=== PATIENT | female | born 1940 | race Caucasian/White ===

== ENCOUNTER → 2017-07-06 | Emergency (ER) | payer MEDICARE ==
[~2017-07-06] VITALS: Ht 152.4 cm; Wt 66.8 kg
[~2017-07-06] MED LIST: AMOX-580 PO; ASPI-1265 PO; ATOR10TA87 PO; BACL10TA PO; BENA10TA2 PO; DULO60CA64 PO; ESTR1TAB19 PO; GABA-532 PO; HYDR-565 PO; OMEP40CA37 PO; ZOLP5TAB2 PO
[2017-07-06 11:54] VITALS: BP 134/79
== END | disposition home or self-care (01) ==
LOC: ER 11:35
DX: S61.451A Open bite of right hand, initial encounter (principal); I10 Essential (primary) hypertension; Z79.82 Long term (current) use of aspirin; Z79.899 Other long term (current) drug therapy; W55.01XA Bitten by cat, initial encounter; Y93.89 Activity, other specified; Y92.89 Other specified places as the place of occurrence of the external cause; Y99.8 Other external cause status

== ENCOUNTER 2019-04-28 20:55 | Emergency (ER) | payer MEDICARE ==
[~2019-04-28] VITALS: Ht 152.4 cm; Wt 54.0 kg
[~2019-04-28 20:55] MED LIST changes: -AMOX-580 PO; -BENA10TA2 PO; +BENA10TA74 PO; -DULO60CA64 PO; +DULO60CA65 PO; +HYDR-4353 PO; -HYDR-565 PO; +OMEP40CA13 PO; -OMEP40CA37 PO
--- NOTE | 2019-04-28 21:36 | NUR ---
PT REPORTS THAT HER CAT HAS HAD ITS RABIES VACCATION
[2019-04-28] MEDS ORDERED: amox tr/potassium clavulanate 875/125mg TAB PO ONE (22:10)
[2019-04-28] MEDS ORDERED: AMOX-580 PO (22:10)
[2019-04-28] MEDS ORDERED: TETanus/Pertussis (Acell)/Diphther VAC/PF (Tdap-Adult) 0.5ml syringe IMVAC ONE (22:20)
[2019-04-28 23:05] VITALS: BP 126/74
== END 2019-04-28 22:38 | disposition home or self-care (01) ==
LOC: ER 20:55
DX: S61.432A Puncture wound without foreign body of left hand, initial encounter (principal); I10 Essential (primary) hypertension; Z79.82 Long term (current) use of aspirin; Z79.899 Other long term (current) drug therapy; W55.01XA Bitten by cat, initial encounter; Y93.89 Activity, other specified; Y92.89 Other specified places as the place of occurrence of the external cause; Y99.8 Other external cause status
CPT/HCPCS: 90471; 90715; 99284

== ENCOUNTER 2021-05-29 14:32 | Inpatient (IN) | payer BC, MEDICARE ==
[~2021-05-29] VITALS: Ht 152.4 cm; Wt 54.6 kg
[~2021-05-29 14:32] MED LIST changes: -ESTR1TAB19 PO; +FURO20TA4 PO; -OMEP40CA13 PO; +OMEP40CA21 PO
--- NOTE | 2021-05-29 14:46 | NUR ---
ARRIVED FOR LEVEL 1 WITH ONSET AT 1330 TODAY? DAUGHTER SAYS PATIENT HAS NOT BEEN SEEN BY THEM SINCE YESTERDAY. PT SAYS WAS NORMAL THIS MORNING. DAUGHTER PHONED PT AT 1:30 THIS AFTERNOON AND NOTED PT WAS SLURRED. AT 2:30 DAUGHTER WENT TO PTS HOME AND PT HAD CRAWLED TO DOOR TO ANSWER IT SHE COULD NOT "WALK". PT HAS CHRONIC DROOPY LEFT FACE AND HAS HAD TWITCHING OF LEFT EYE AND MOUTH FOR WHICH SHE HAS RECENTLY STARTED TAKING MEDICATION FOR. PT HAS SUBTLE DRIFT OF LEFT LEG AND ARM. ATAXIA PRESENT WITH LEFT FINGER TO NOSE. VISION AND SENSORY INTACT. 1529 TELE NEURO EXAM COMPLETED WITH DR CORMIER.
[2021-05-29 15:12] LABS: BASOPHILS % (AUTO) 0.4 % (0-1); EOSINOPHILS # (AUTO) 0.1 X10'3 (0-0.9); EOSINOPHILS % (AUTO) 1.9 % (0-6); HEMATOCRIT 40.5 % (35.0-45.0); HEMOGLOBIN 13.6 g/dl (12.0-16.0); LYMPHOCYTES # (AUTO) 1.6 X10'3 (1.1-4.8); LYMPHOCYTES % (AUTO) 28.8 % (21-51); MEAN CORPUSCULAR HEMOGLOBIN 31.2 PG (27.0-31.0); MEAN CORPUSCULAR HGB CONC 33.7 g/dL (33.0-36.5); MEAN CORPUSCULAR VOLUME 92.6 FL (78-98); MEAN PLATELET VOLUME 8.3 FL (7.4-10.4); MONOCYTES # (AUTO) 0.4 X10'3 (0-0.9); NEUTROPHILS # (AUTO) 3.4 X10'3 (1.8-7.7); NEUTROPHILS % (AUTO) 61.9 % (42-75); PLATELET COUNT 186 X10'3 (140-440); RED BLOOD COUNT 4.37 X10'6 (4.20-5.60); RED CELL DISTRIBUTION WIDTH 13.2 % (11.5-14.5); WHITE BLOOD COUNT 5.5 X10'3 (4.5-11.0)
[2021-05-29 15:27] LABS: APTT 29 SECONDS (22-32)
[2021-05-29 15:40] LABS: ALANINE AMINOTRANSFERASE 17 U/L (12-78); ALBUMIN 3.6 G/DL (3.4-5.0); ALBUMIN/GLOBULIN RATIO 1.2 (1.1-1.5); ALKALINE PHOSPHATASE 138 IU/L (46-116); ANION GAP 10 (8-16); ASPARTATE AMINO TRANSFERASE 17 U/L (10-37); BILIRUBIN,TOTAL 0.2 MG/DL (0.1-1.0); BLOOD UREA NITROGEN 23 MG/DL (7-18); BUN/CREATININE RATIO 36.5 (6.6-38.0); CALCIUM 8.3 MG/DL (8.5-10.1); CHLORIDE 107 MMOL/L (99-107); CREATININE 0.63 MG/DL (0.40-0.90); GLUCOSE 106 MG/DL (70-104); POTASSIUM 4.4 MMOL/L (3.5-5.1); SODIUM 142 MMOL/L (135-145); TOTAL CARBON DIOXIDE 25.5 MMOL/L (24-32); TOTAL PROTEIN 6.5 G/DL (6.4-8.2); eGFR > 90 ML/MIN
--- NOTE | 2021-05-29 15:50 | NUR ---
STROKE NURSE AT BEDSIDE.
[2021-05-29 16:58] LABS: CLARITY,URINE SLIGHTLY CLOUDY (Clear); COLOR,URINE YELLOW (Yellow); GLUCOSE, URINE NEGATIVE (Neg); KETONES,URINE NEGATIVE (Neg); LEUKOCYTE ESTERASE ,URINE TRACE (Neg); NITRITES, URINE NEGATIVE (Neg); OCCULT BLOOD,URINE NEGATIVE (Neg); PROTEIN,URINE NEGATIVE (Neg); UROBILINOGEN,URINE 0.2 E.U/dL (0.2-1.0)
[2021-05-29] MEDS ORDERED: GABA300C PO (16:58)
[2021-05-29] MEDS ORDERED: BACL10TA2 PO (16:58)
[2021-05-29] MEDS ORDERED: CARB100T15 PO (16:58)
[2021-05-29] MEDS ORDERED: ATOR20TA66 PO (16:58)
[2021-05-29] MEDS ORDERED: MELO-100 PO (16:58)
[2021-05-29] MEDS ORDERED: HYDR-3973 PO (16:58)
[2021-05-29] MEDS ORDERED: ZOLP5TAB8 PO (16:58)
[2021-05-29 16:59] LABS: UA COLLECTION TYPE VOIDED
[2021-05-29] MEDS ORDERED: magnesium 2GM in 50ml NS 50 ML IV PRN (17:00)
[2021-05-29] MEDS ORDERED: magnesium Cl slow-release 64mg tablet PO PRN (17:00)
[2021-05-29] MEDS ORDERED: ondansetron/PF 4mg/2ml inj IV PRN (17:00)
[2021-05-29] MEDS ORDERED: acetaminophen 325mg tablet PO PRN (17:00)
[2021-05-29] MEDS ORDERED: mag hydrox/Alum hydrox/simeth 30ml oral suspension PO PRN (17:00)
[2021-05-29] MEDS ORDERED: potassium CL 10mEq/100ml bag 100 ML IV PRN (17:00)
[2021-05-29] MEDS ORDERED: potassium Cl 20 mEq SR tablet PO PRN ×2 (17:00)
[2021-05-29] MEDS ORDERED: magnesium hydroxide 30ml (MOM) UD suspension PO PRN (17:00)
[2021-05-29] MEDS ORDERED: magnesium 4gm in 100ml NS 100 ML IV PRN (17:00)
[2021-05-29 17:04] LABS: BACTERIA,URINE 1+ /HPF (Neg); MUCUS STRANDS FEW /LPF (Neg); RBC,URINE 0-2 /HPF (0-2); SQUAMOUS EPITHELIAL CELL,UR MODERATE /LPF (FEW); TRANSITIONAL EPI CELLS,URINE FEW /HPF
[2021-05-29 17:31] LABS: CHOL/HDL RATIO 2.5 (0.00-4.99); CHOLESTEROL 227 MG/DL (0-200); HDL CHOLESTEROL 92 MG/DL (35-60); MAGNESIUM 1.8 MG/DL (1.5-2.4); TRIGLYCERIDES 211 MG/DL (20-135)
[2021-05-29] MEDS: normal saline 1000ml 1,000 ML IV SCH ×2 (17:36→22:38)
[2021-05-29] MEDS ORDERED: zolpidem 5mg tablet PO PRN (17:40)
[2021-05-29] MEDS ORDERED: HYDROcodone/acetaminophen 10/325mg tab PO PRN (17:40)
[2021-05-29 17:45] LABS: LDL CHOLESTEROL 105 MG/DL (50-100)
--- NOTE | 2021-05-29 17:59 | NUR ---
HOLTER TECHNICIAN AT BEDSIDE.
[2021-05-29] MEDS: K and/or MAG REPLACEMENT MC SCH (20:00)
[2021-05-29 22:40] VITALS: BP 124/67
[2021-05-29] MEDS: docusate sod 100mg capsule PO SCH (23:10)
[2021-05-30 02:00] VITALS: BP 143/79
[2021-05-30 06:00] VITALS: BP 170/85
[2021-05-30 06:23] LABS: BASOPHILS % (AUTO) 0.4 % (0-1); EOSINOPHILS # (AUTO) 0.1 X10'3 (0-0.9); EOSINOPHILS % (AUTO) 1.6 % (0-6); HEMATOCRIT 42.6 % (35.0-45.0); HEMOGLOBIN 13.9 g/dl (12.0-16.0); LYMPHOCYTES # (AUTO) 1.7 X10'3 (1.1-4.8); LYMPHOCYTES % (AUTO) 32.6 % (21-51); MEAN CORPUSCULAR HEMOGLOBIN 30.9 PG (27.0-31.0); MEAN CORPUSCULAR HGB CONC 32.6 g/dL (33.0-36.5); MEAN CORPUSCULAR VOLUME 94.8 FL (78-98); MEAN PLATELET VOLUME 8.3 FL (7.4-10.4); MONOCYTES # (AUTO) 0.4 X10'3 (0-0.9); MONOCYTES % (AUTO) 8.1 % (2-12); NEUTROPHILS # (AUTO) 2.9 X10'3 (1.8-7.7); NEUTROPHILS % (AUTO) 57.3 % (42-75); PLATELET COUNT 165 X10'3 (140-440); RED BLOOD COUNT 4.49 X10'6 (4.20-5.60); RED CELL DISTRIBUTION WIDTH 13.5 % (11.5-14.5); WHITE BLOOD COUNT 5.1 X10'3 (4.5-11.0)
[2021-05-30 07:43] LABS: ALBUMIN 3.4 G/DL (3.4-5.0); ANION GAP 14 (8-16); BLOOD UREA NITROGEN 22 MG/DL (7-18); BUN/CREATININE RATIO 39.3 (6.6-38.0); CALCIUM 8.8 MG/DL (8.5-10.1); CHLORIDE 107 MMOL/L (99-107); CREATININE 0.56 MG/DL (0.40-0.90); GLUCOSE 101 MG/DL (70-104); POTASSIUM 4.8 MMOL/L (3.5-5.1); SODIUM 142 MMOL/L (135-145); TOTAL CARBON DIOXIDE 21.1 MMOL/L (24-32); eGFR > 90 ML/MIN
[2021-05-30] MEDS: docusate sod 100mg capsule PO SCH (07:47)
[2021-05-30] MEDS: K and/or MAG REPLACEMENT MC SCH (07:55)
[2021-05-30] MEDS ORDERED: duloxetine 30mg CAPSULE.DR PO SCH (08:00)
[2021-05-30] MEDS ORDERED: gabapentin 300mg capsule PO SCH (08:00)
[2021-05-30] MEDS ORDERED: carBAMazepine 100mg chewable tablet PO SCH (08:00)
[2021-05-30] MEDS ORDERED: lisinopril 10 MG tablet PO SCH (08:00)
[2021-05-30] MEDS ORDERED: atorvastatin 20mg tablet PO SCH (08:00)
[2021-05-30] MEDS ORDERED: pantoprazole 40mg Tablet.DR PO SCH (08:00)
[2021-05-30] MEDS ORDERED: enoxaparin 40mg/0.4ml syringe SUBCUT SCH (08:00)
[2021-05-30] MEDS ORDERED: aspirin 81mg, enteric-coated 1 TAB TABLET.DR PO SCH (08:00)
--- NOTE | 2021-05-30 10:17 | NUR ---
ALERT WHEN AROUSED. CHRONIC LEFT FACIAL WEAKNESS PRESENT. MINIMAL SLURRING. PT SAYS HAS HAD BOTOX TREATMENT FOR LEFT FACIAL WEAKNESS..PER PT "DIDN'T HELP". VASCULAR STUDIES DONE WITH EXCEPTION OF MRI. URINE CULTURE PENDING. CONDITION IMPROVED FROM 05/29.
[2021-05-30 11:00] VITALS: BP 129/66
[2021-05-30] MEDS ORDERED: levoFLOXACIN 500mg tablet PO ONE (13:00)
[2021-05-30 15:00] VITALS: BP 122/68
--- NOTE | 2021-05-30 16:23 | NUR ---
PAGER ID: [phone] MESSAGE: PATIENT [id number] CAN NOT GET MRI BECAUSE SHE HAD CATARACT SURGERY COUPLE WEEKS AGO . SHE HAVE TO WEEK 6 WEEKS . AND SHE WILL LIKE TO BE DISCHARGE . LATISHA JONES
[2021-05-30] MEDS ORDERED: ASPI81TA52 PO (16:29)
== END 2021-05-30 17:25 | disposition home or self-care (01) | DRG 69 ==
LOC: ER 14:32 → ED HOLD 17:01 → PCU 3S 22:00
PROVIDERS: ADMIT Family Medicine; ATTEND Family Medicine
DX: G45.9 Transient cerebral ischemic attack, unspecified (principal); G51.0 Bell's palsy; E78.5 Hyperlipidemia, unspecified; I10 Essential (primary) hypertension; K21.9 Gastro-esophageal reflux disease without esophagitis; G62.9 Polyneuropathy, unspecified; M79.7 Fibromyalgia; Z90.710 Acquired absence of both cervix and uterus; Z91.041 Radiographic dye allergy status; Z79.899 Other long term (current) drug therapy
CPT/HCPCS: 36415; 70450; 71045; 80048; 80053; 80061; 81001; 82948; 83735; 84484; 85025; 85610; 85730; 87077; 87081; 87088; 87186; 92508; 92616; 93005; 93306; 93880; 99285; G0378; J1650; J7030

== ENCOUNTER 2023-04-08 14:05 | Emergency (ER) | payer MEDICARE ==
[~2023-04-08] VITALS: Ht 154.9 cm; Wt 50.9 kg
[~2023-04-08 14:05] MED LIST changes: -ASPI-1265 PO; -ATOR10TA87 PO; +ATOR20TA66 PO; -BACL10TA PO; +BACL10TA2 PO; +CARB100T15 PO; -FURO20TA4 PO; -GABA-532 PO; +GABA300C PO; +HYDR-3973 PO; -HYDR-4353 PO; +MELO-100 PO; -ZOLP5TAB2 PO; +ZOLP5TAB8 PO
[2023-04-08 14:09] VITALS: BP 151/67; PULSE 87; RESP 18; TEMP 97.7; O2SAT 98
== END 2023-04-08 15:56 | disposition left against medical advice (07) ==
LOC: ER 14:06
DX: I63.9 Cerebral infarction, unspecified (principal); Z53.21 Procedure and treatment not carried out due to patient leaving prior to being seen by health care provider
CPT/HCPCS: 99281

== ENCOUNTER 2023-12-03 18:41 | Inpatient (IN) | payer MEDICARE ==
[~2023-12-03] VITALS: Ht 152.4 cm; Wt 52.7 kg
[2023-12-03 19:58] LABS: BASOPHILS % (AUTO) 0.3 % (0-1); EOSINOPHILS # (AUTO) 0.1 X10'3 (0-0.9); EOSINOPHILS % (AUTO) 1.3 % (0-6); HEMATOCRIT 46.7 % (35.0-45.0); HEMOGLOBIN 15.6 g/dl (12.0-16.0); LYMPHOCYTES # (AUTO) 1.6 X10'3 (1.1-4.8); LYMPHOCYTES % (AUTO) 19.4 % (21-51); MEAN CORPUSCULAR HEMOGLOBIN 31.3 PG (27.0-31.0); MEAN CORPUSCULAR HGB CONC 33.3 g/dL (33.0-36.5); MEAN CORPUSCULAR VOLUME 93.9 FL (78-98); MONOCYTES # (AUTO) 0.6 X10'3 (0-0.9); MONOCYTES % (AUTO) 7.3 % (2-12); NEUTROPHILS # (AUTO) 5.8 X10'3 (1.8-7.7); NEUTROPHILS % (AUTO) 71.7 % (42-75); PLATELET COUNT 198 X10'3 (140-440); RED BLOOD COUNT 4.97 X10'6 (4.20-5.60); RED CELL DISTRIBUTION WIDTH 13.2 % (11.5-14.5); WHITE BLOOD COUNT 8.1 X10'3 (4.5-11.0)
[2023-12-03 20:07] LABS: ANION GAP 9 (8-16); BLOOD UREA NITROGEN 35 MG/DL (7-18); BUN/CREATININE RATIO 24.5 (10.0-20.0); CALCIUM 9.1 MG/DL (8.5-10.1); CHLORIDE 108 MMOL/L (99-107); CREATININE 1.43 MG/DL (0.40-0.90); GLUCOSE 94 MG/DL (70-104); POTASSIUM 4.5 MMOL/L (3.5-5.1); SODIUM 143 MMOL/L (135-145); TOTAL CARBON DIOXIDE 25.9 MMOL/L (24-32); eCRCL 21 ML/MIN; eGFR 35 ML/MIN
[2023-12-03 20:09] LABS: APTT 26 SECONDS (22-32); PROTHROMBIN TIME 10.8 SECONDS (9.0-12.0)
[2023-12-03] MEDS: propofol 10mg/ml 20ml vial IV ONE (20:10)
[2023-12-03 20:32] LABS: MAGNESIUM 2.1 MG/DL (1.5-2.4)
[2023-12-03] MEDS: ondansetron/PF 4mg/2ml inj IV ONE (20:35)
[2023-12-03] MEDS: morphine 2 MG/ML inj. syringe IV PRN (20:37)
[2023-12-04] MEDS ORDERED: magnesium Cl slow-release 64mg tablet PO PRN (01:40)
[2023-12-04] MEDS ORDERED: PERFLUTREN PROTEIN-A MICROSPHR (Optison) 0.22 MG/ML 3ML VIAL IV PRN (01:40)
[2023-12-04] MEDS ORDERED: potassium Cl 20 mEq SR tablet PO PRN ×2 (01:40)
[2023-12-04] MEDS ORDERED: acetaminophen 325mg tablet PO PRN (01:40)
[2023-12-04] MEDS ORDERED: mag hydrox/Alum hydrox/simeth 30ml oral suspension PO PRN (01:40)
[2023-12-04] MEDS ORDERED: magnesium sulf-water 2g/50mL 50 ML IV PRN (01:40)
[2023-12-04] MEDS ORDERED: potassium Cl 40MEQ/1/2NS 520ml 520 ML IV PRN (01:40)
[2023-12-04] MEDS ORDERED: ondansetron/PF 4mg/2ml inj IV PRN (01:40)
[2023-12-04] MEDS ORDERED: magnesium sulf-water 4G/100mL 100 ML IV PRN (01:40)
[2023-12-04] MEDS ORDERED: magnesium hydroxide 30ml (MOM) UD suspension PO PRN (01:40)
[2023-12-04] MEDS: HYDROcodone/acetaminophen 10/325mg tab PO PRN (02:12)
[2023-12-04] MEDS: normal saline 1000ml 1,000 ML IV SCH (02:16)
[2023-12-04 02:19] LABS: HEMOGLOBIN A1C 5.6 % (4.5-6.2)
[2023-12-04 05:57] VITALS: BP 97/66; PULSE 75; RESP 16; TEMP 97.2; O2SAT 94
[2023-12-04] MEDS: duloxetine 30mg CAPSULE.DR PO SCH (07:35)
[2023-12-04] MEDS: atorvastatin 20mg tablet PO SCH (07:35)
[2023-12-04] MEDS: lisinopril 10 MG tablet PO SCH (07:36)
[2023-12-04] MEDS: heparin, porcine 5000 units/ml vial SQ SCH (07:36)
[2023-12-04] MEDS: K and/or MAG REPLACEMENT MC SCH (07:37)
[2023-12-04] MEDS ORDERED: pneumococcal 23-VAL P-sac vacc 25 mcg/0.5ml vial IMVAC ONE (10:00)
[2023-12-04 11:00] VITALS: BP 136/53; PULSE 74; RESP 18; TEMP 98.3; O2SAT 94
[2023-12-04 16:29] LABS: BILIRUBIN,URINE NEGATIVE (Neg); CLARITY,URINE CLEAR (Clear); COLOR,URINE YELLOW (Yellow); GLUCOSE, URINE NEGATIVE (Neg); KETONES,URINE NEGATIVE (Neg); LEUKOCYTE ESTERASE ,URINE NEGATIVE (Neg); NITRITES, URINE NEGATIVE (Neg); OCCULT BLOOD,URINE NEGATIVE (Neg); PROTEIN,URINE NEGATIVE (Neg); UROBILINOGEN,URINE 0.2 E.U/dL (0.2-1.0)
[2023-12-04 16:35] LABS: UA COLLECTION TYPE STRAIGHT CATH
[2023-12-04 18:00] VITALS: BP 132/47; PULSE 82; RESP 18; TEMP 98.1; O2SAT 94
[2023-12-04 19:40] LABS: BASOPHILS % (AUTO) 0.6 % (0-1); EOSINOPHILS # (AUTO) 0.1 X10'3 (0-0.9); EOSINOPHILS % (AUTO) 1.2 % (0-6); HEMATOCRIT 37.1 % (35.0-45.0); HEMOGLOBIN 12.2 g/dl (12.0-16.0); LYMPHOCYTES # (AUTO) 1.1 X10'3 (1.1-4.8); LYMPHOCYTES % (AUTO) 18.6 % (21-51); MEAN CORPUSCULAR HGB CONC 32.8 g/dL (33.0-36.5); MEAN CORPUSCULAR VOLUME 94.6 FL (78-98); MEAN PLATELET VOLUME 8.9 FL (7.4-10.4); MONOCYTES # (AUTO) 0.4 X10'3 (0-0.9); NEUTROPHILS # (AUTO) 4.3 X10'3 (1.8-7.7); NEUTROPHILS % (AUTO) 72.6 % (42-75); PLATELET COUNT 147 X10'3 (140-440); RED BLOOD COUNT 3.92 X10'6 (4.20-5.60); RED CELL DISTRIBUTION WIDTH 13.2 % (11.5-14.5); WHITE BLOOD COUNT 5.9 X10'3 (4.5-11.0)
[2023-12-04] MEDS: gabapentin 300mg capsule PO SCH (21:43)
[2023-12-04] MEDS: carBAMazepine 100mg chewable tablet PO SCH (21:44)
[2023-12-04 22:00] VITALS: BP 123/55; PULSE 69; RESP 14; TEMP 97.9; O2SAT 95
[2023-12-05 05:48] LABS: BASOPHILS % (AUTO) 0.3 % (0-1); EOSINOPHILS # (AUTO) 0.1 X10'3 (0-0.9); EOSINOPHILS % (AUTO) 2.3 % (0-6); HEMATOCRIT 35.7 % (35.0-45.0); HEMOGLOBIN 11.8 g/dl (12.0-16.0); LYMPHOCYTES # (AUTO) 1.2 X10'3 (1.1-4.8); LYMPHOCYTES % (AUTO) 23.6 % (21-51); MEAN CORPUSCULAR HEMOGLOBIN 31.2 PG (27.0-31.0); MEAN CORPUSCULAR VOLUME 94.6 FL (78-98); MEAN PLATELET VOLUME 9.1 FL (7.4-10.4); MONOCYTES # (AUTO) 0.4 X10'3 (0-0.9); MONOCYTES % (AUTO) 8.4 % (2-12); NEUTROPHILS # (AUTO) 3.3 X10'3 (1.8-7.7); NEUTROPHILS % (AUTO) 65.4 % (42-75); PLATELET COUNT 137 X10'3 (140-440); RED BLOOD COUNT 3.78 X10'6 (4.20-5.60); RED CELL DISTRIBUTION WIDTH 12.9 % (11.5-14.5)
[2023-12-05 06:00] VITALS: BP 137/54; PULSE 68; RESP 14; TEMP 98.4; O2SAT 96
[2023-12-05 06:11] LABS: APTT 31 SECONDS (22-32); PROTHROMBIN TIME 10.9 SECONDS (9.0-12.0)
[2023-12-05 06:12] LABS: ALANINE AMINOTRANSFERASE 49 U/L (12-78); ALBUMIN 2.7 G/DL (3.4-5.0); ALBUMIN/GLOBULIN RATIO 1.1 (1.1-1.5); ALKALINE PHOSPHATASE 95 IU/L (46-116); ANION GAP 6 (8-16); ASPARTATE AMINO TRANSFERASE 51 U/L (10-37); BILIRUBIN,TOTAL 0.4 MG/DL (0.1-1.0); BLOOD UREA NITROGEN 26 MG/DL (7-18); BUN/CREATININE RATIO 41.9 (10.0-20.0); CALCIUM 8.4 MG/DL (8.5-10.1); CHLORIDE 111 MMOL/L (99-107); CHOL/HDL RATIO 2.8 (0.00-4.99); CHOLESTEROL 172 MG/DL (0-200); CREATININE 0.62 MG/DL (0.40-0.90); GLUCOSE 103 MG/DL (70-104); HDL CHOLESTEROL 61 MG/DL (35-60); LDL CHOLESTEROL 94 MG/DL (50-100); MAGNESIUM 1.7 MG/DL (1.5-2.4); PHOSPHORUS 3.3 MG/DL (2.3-4.5); POTASSIUM 4.6 MMOL/L (3.5-5.1); SODIUM 142 MMOL/L (135-145); TOTAL CARBON DIOXIDE 25.3 MMOL/L (24-32); TOTAL PROTEIN 5.2 G/DL (6.4-8.2); TRIGLYCERIDES 84 MG/DL (20-135); eCRCL 49 ML/MIN; eGFR > 90 ML/MIN
[2023-12-05 10:00] VITALS: BP 138/60; PULSE 74; RESP 18; TEMP 98; O2SAT 95
[2023-12-05] MEDS: BUPIVAcaine 2.5mg/ml inj 50ml vial (contains preservative) ONE (15:37)
[2023-12-05 18:00] VITALS: BP 146/63; PULSE 77; RESP 16; TEMP 98; O2SAT 96
[2023-12-05 20:00] VITALS: BP_SYST 130; BP_SYST 135; BP_DIAS 62; BP_DIAS 63; PULSE 71; PULSE 74
[2023-12-05 22:00] VITALS: BP 133/62; PULSE 71; RESP 16; TEMP 98.2; O2SAT 95
[2023-12-06] VITALS (14 sets, daily range): BP systolic 105–177; BP diastolic 38–70; PULSE 68–89; RESP 10–18; TEMP 97.3–97.8; O2SAT 93–100
[2023-12-06 05:47] LABS: BASOPHILS % (AUTO) 0.3 % (0-1); EOSINOPHILS # (AUTO) 0.1 X10'3 (0-0.9); LYMPHOCYTES % (AUTO) 18.6 % (21-51); MEAN CORPUSCULAR HEMOGLOBIN 30.5 PG (27.0-31.0); MEAN CORPUSCULAR HGB CONC 32.4 g/dL (33.0-36.5); MEAN CORPUSCULAR VOLUME 93.9 FL (78-98); MONOCYTES # (AUTO) 0.3 X10'3 (0-0.9); MONOCYTES % (AUTO) 5.7 % (2-12); NEUTROPHILS # (AUTO) 4.1 X10'3 (1.8-7.7); NEUTROPHILS % (AUTO) 73.4 % (42-75); PLATELET COUNT 154 X10'3 (140-440); RED BLOOD COUNT 4.26 X10'6 (4.20-5.60); RED CELL DISTRIBUTION WIDTH 13.1 % (11.5-14.5); WHITE BLOOD COUNT 5.5 X10'3 (4.5-11.0)
[2023-12-06 05:49] LABS: APTT 32 SECONDS (22-32); PROTHROMBIN TIME 10.4 SECONDS (9.0-12.0)
[2023-12-06 06:43] LABS: ALANINE AMINOTRANSFERASE 165 U/L (12-78); ALBUMIN 3.2 G/DL (3.4-5.0); ALKALINE PHOSPHATASE 275 IU/L (46-116); ANION GAP 7 (8-16); ASPARTATE AMINO TRANSFERASE 192 U/L (10-37); BILIRUBIN,TOTAL 0.4 MG/DL (0.1-1.0); BLOOD UREA NITROGEN 14 MG/DL (7-18); BUN/CREATININE RATIO 23.3 (10.0-20.0); CALCIUM 8.9 MG/DL (8.5-10.1); CHLORIDE 109 MMOL/L (99-107); GLUCOSE 109 MG/DL (70-104); MAGNESIUM 1.6 MG/DL (1.5-2.4); PHOSPHORUS 2.6 MG/DL (2.3-4.5); POTASSIUM 4.4 MMOL/L (3.5-5.1); SODIUM 142 MMOL/L (135-145); TOTAL CARBON DIOXIDE 26.4 MMOL/L (24-32); TOTAL PROTEIN 6.4 G/DL (6.4-8.2); eCRCL 51 ML/MIN; eGFR > 90 ML/MIN
[2023-12-06] MEDS: bacitracin 15gm ointment TP ONE ×2 (14:45→18:10)
[2023-12-06] MEDS ORDERED: sevoflurane 250ml liquid IH ONE (16:01)
[2023-12-06] MEDS: cloNIDine hcl/PF 100mcg/ml inj ONE (16:03)
[2023-12-06] MEDS ORDERED: fentaNYL/PF 50MCG/1 ML 2ML syringe ONE (16:04)
[2023-12-06] MEDS ORDERED: propofol inj 20 ML IV ONE (16:04)
[2023-12-06] MEDS ORDERED: ceFAZolin 1000mg inj ONE ×2 (16:26)
[2023-12-06] MEDS ORDERED: ringers solution, lacted 1,000 ML IV SCH (17:15)
[2023-12-06] MEDS ORDERED: meperidine/PF 25mg/ml syringe IV PRN ×3 (17:15)
[2023-12-06] MEDS ORDERED: morphine 2 MG/ML inj. syringe IV PRN (17:15)
[2023-12-06] MEDS ORDERED: proCHLORperazine 10 MG/2 ml inj IV PRN (17:15)
[2023-12-06] MEDS ORDERED: morphine 4 MG/ML inj SYRINge IV PRN (17:15)
[2023-12-06] MEDS ORDERED: ondansetron/PF 4mg/2ml inj IV PRN ×2 (17:15→18:10)
[2023-12-06] MEDS ORDERED: naloxone 0.4 mg/ml inj IV PRN (18:10)
[2023-12-06] MEDS ORDERED: ROPIVAcaine 0.5% (5mg/ml) 30ml vial ONE (18:13)
[2023-12-07 01:34] VITALS: BP 112/42; PULSE 64; RESP 16; TEMP 97.9; O2SAT 95
[2023-12-07 06:59] LABS: APTT 29 SECONDS (22-32); PROTHROMBIN TIME 10.5 SECONDS (9.0-12.0)
[2023-12-07 07:15] VITALS: BP 129/52; PULSE 66; RESP 16; TEMP 97.5; O2SAT 98
[2023-12-07 07:15] LABS: ALANINE AMINOTRANSFERASE 144 U/L (12-78); ALBUMIN 2.8 G/DL (3.4-5.0); ALBUMIN/GLOBULIN RATIO 0.8 (1.1-1.5); ALKALINE PHOSPHATASE 293 IU/L (46-116); ANION GAP 9 (8-16); ASPARTATE AMINO TRANSFERASE 118 U/L (10-37); BILIRUBIN,TOTAL 0.3 MG/DL (0.1-1.0); BLOOD UREA NITROGEN 12 MG/DL (7-18); BUN/CREATININE RATIO 18.8 (10.0-20.0); CALCIUM 8.5 MG/DL (8.5-10.1); CHLORIDE 109 MMOL/L (99-107); CREATININE 0.64 MG/DL (0.40-0.90); GLUCOSE 170 MG/DL (70-104); MAGNESIUM 1.6 MG/DL (1.5-2.4); PHOSPHORUS 2.3 MG/DL (2.3-4.5); POTASSIUM 4.1 MMOL/L (3.5-5.1); SODIUM 141 MMOL/L (135-145); TOTAL CARBON DIOXIDE 23.5 MMOL/L (24-32); TOTAL PROTEIN 6.2 G/DL (6.4-8.2); eCRCL 48 ML/MIN; eGFR 89 ML/MIN
[2023-12-07 07:57] VITALS: BP_SYST 138; BP_SYST 139; BP_SYST 140; BP_SYST 151; BP_DIAS 59; BP_DIAS 64; BP_DIAS 66; PULSE 65; PULSE 66; PULSE 70; PULSE 71
[2023-12-07 08:11] LABS: BASOPHILS % (AUTO) 0 % (0-1); EOSINOPHILS % (AUTO) 0.1 % (0-6); HEMATOCRIT 38.8 % (35.0-45.0); HEMOGLOBIN 12.4 g/dl (12.0-16.0); LYMPHOCYTES # (AUTO) 0.5 X10'3 (1.1-4.8); LYMPHOCYTES % (AUTO) 6.2 % (21-51); MEAN CORPUSCULAR HEMOGLOBIN 30.5 PG (27.0-31.0); MEAN CORPUSCULAR HGB CONC 32.1 g/dL (33.0-36.5); MEAN PLATELET VOLUME 9.3 FL (7.4-10.4); MONOCYTES # (AUTO) 0.2 X10'3 (0-0.9); MONOCYTES % (AUTO) 2.4 % (2-12); NEUTROPHILS # (AUTO) 7.8 X10'3 (1.8-7.7); NEUTROPHILS % (AUTO) 91.3 % (42-75); PLATELET COUNT 148 X10'3 (140-440); RED BLOOD COUNT 4.08 X10'6 (4.20-5.60); RED CELL DISTRIBUTION WIDTH 13.3 % (11.5-14.5); WHITE BLOOD COUNT 8.6 X10'3 (4.5-11.0)
[2023-12-07] MEDS ORDERED: gabapentin 300mg capsule PO SCH (13:47)
[2023-12-07] MEDS: pneumococcal 23-VAL P-sac vacc 25 mcg/0.5ml vial IMVAC ONE (16:16)
[2023-12-07 18:00] VITALS: BP 125/56; PULSE 80; RESP 16; TEMP 99.2; O2SAT 96
[2023-12-07] MEDS: zolpidem 5mg tablet PO PRN (20:14)
[2023-12-07 22:00] VITALS: BP 132/52; PULSE 79; RESP 16; TEMP 98.3; O2SAT 95
[2023-12-07 23:52] VITALS: BP 124/88; PULSE 60
[2023-12-08] VITALS (7 sets, daily range): BP systolic 125–162; BP diastolic 56–80; PULSE 61–80; RESP 14–18; TEMP 97.7–98.6; O2SAT 96–98
[2023-12-08 07:11] LABS: BASOPHILS % (AUTO) 0.3 % (0-1); EOSINOPHILS # (AUTO) 0.1 X10'3 (0-0.9); EOSINOPHILS % (AUTO) 1.8 % (0-6); HEMOGLOBIN 11.6 g/dl (12.0-16.0); LYMPHOCYTES % (AUTO) 27.6 % (21-51); MEAN CORPUSCULAR HGB CONC 33.1 g/dL (33.0-36.5); MEAN CORPUSCULAR VOLUME 93.6 FL (78-98); MONOCYTES # (AUTO) 0.5 X10'3 (0-0.9); MONOCYTES % (AUTO) 7.1 % (2-12); NEUTROPHILS # (AUTO) 4.5 X10'3 (1.8-7.7); NEUTROPHILS % (AUTO) 63.2 % (42-75); PLATELET COUNT 146 X10'3 (140-440); RED BLOOD COUNT 3.74 X10'6 (4.20-5.60); RED CELL DISTRIBUTION WIDTH 13.2 % (11.5-14.5); WHITE BLOOD COUNT 7.1 X10'3 (4.5-11.0)
[2023-12-08 07:15] LABS: PROTHROMBIN TIME 10.4 SECONDS (9.0-12.0)
[2023-12-08 07:35] LABS: ALANINE AMINOTRANSFERASE 79 U/L (12-78); ALBUMIN 2.4 G/DL (3.4-5.0); ALBUMIN/GLOBULIN RATIO 0.8 (1.1-1.5); ALKALINE PHOSPHATASE 195 IU/L (46-116); ANION GAP 8 (8-16); ASPARTATE AMINO TRANSFERASE 36 U/L (10-37); BILIRUBIN,TOTAL 0.3 MG/DL (0.1-1.0); BLOOD UREA NITROGEN 17 MG/DL (7-18); BUN/CREATININE RATIO 27.4 (10.0-20.0); CALCIUM 8.5 MG/DL (8.5-10.1); CHLORIDE 112 MMOL/L (99-107); CREATININE 0.62 MG/DL (0.40-0.90); GLUCOSE 100 MG/DL (70-104); MAGNESIUM 1.6 MG/DL (1.5-2.4); PHOSPHORUS 2.9 MG/DL (2.3-4.5); POTASSIUM 3.8 MMOL/L (3.5-5.1); SODIUM 145 MMOL/L (135-145); TOTAL CARBON DIOXIDE 25.5 MMOL/L (24-32); TOTAL PROTEIN 5.3 G/DL (6.4-8.2); eCRCL 49 ML/MIN; eGFR > 90 ML/MIN
[2023-12-08] MEDS: gabapentin 300mg capsule PO SCH (11:11)
[2023-12-09 05:47] VITALS: BP 145/65; PULSE 81; RESP 20; TEMP 97.7; O2SAT 96
[2023-12-09 06:41] LABS: PROTHROMBIN TIME 10.7 SECONDS (9.0-12.0)
[2023-12-09 06:42] LABS: BASOPHILS % (AUTO) 0.3 % (0-1); EOSINOPHILS # (AUTO) 0.2 X10'3 (0-0.9); EOSINOPHILS % (AUTO) 3.3 % (0-6); HEMATOCRIT 36.4 % (35.0-45.0); LYMPHOCYTES # (AUTO) 1.9 X10'3 (1.1-4.8); LYMPHOCYTES % (AUTO) 33.6 % (21-51); MEAN CORPUSCULAR HEMOGLOBIN 30.7 PG (27.0-31.0); MEAN CORPUSCULAR HGB CONC 32.9 g/dL (33.0-36.5); MEAN CORPUSCULAR VOLUME 93.3 FL (78-98); MEAN PLATELET VOLUME 8.7 FL (7.4-10.4); MONOCYTES # (AUTO) 0.4 X10'3 (0-0.9); MONOCYTES % (AUTO) 7.5 % (2-12); NEUTROPHILS # (AUTO) 3.2 X10'3 (1.8-7.7); NEUTROPHILS % (AUTO) 55.3 % (42-75); PLATELET COUNT 170 X10'3 (140-440); RED CELL DISTRIBUTION WIDTH 13.3 % (11.5-14.5); WHITE BLOOD COUNT 5.8 X10'3 (4.5-11.0)
[2023-12-09 06:56] LABS: ALANINE AMINOTRANSFERASE 60 U/L (12-78); ALBUMIN 2.4 G/DL (3.4-5.0); ALBUMIN/GLOBULIN RATIO 0.8 (1.1-1.5); ALKALINE PHOSPHATASE 158 IU/L (46-116); ANION GAP 5 (8-16); ASPARTATE AMINO TRANSFERASE 26 U/L (10-37); BILIRUBIN,TOTAL 0.2 MG/DL (0.1-1.0); BLOOD UREA NITROGEN 16 MG/DL (7-18); BUN/CREATININE RATIO 25.8 (10.0-20.0); CALCIUM 8.4 MG/DL (8.5-10.1); CHLORIDE 109 MMOL/L (99-107); CREATININE 0.62 MG/DL (0.40-0.90); GLUCOSE 99 MG/DL (70-104); MAGNESIUM 1.6 MG/DL (1.5-2.4); PHOSPHORUS 3.2 MG/DL (2.3-4.5); POTASSIUM 4.2 MMOL/L (3.5-5.1); SODIUM 142 MMOL/L (135-145); TOTAL PROTEIN 5.3 G/DL (6.4-8.2); eCRCL 49 ML/MIN; eGFR > 90 ML/MIN
[2023-12-09 08:00] VITALS: BP_SYST 159; BP_SYST 180; BP_SYST 183; BP_DIAS 65; BP_DIAS 73; BP_DIAS 74; PULSE 71; PULSE 73; PULSE 79
[2023-12-09 08:20] VITALS: RESP 16
[2023-12-09 18:00] VITALS: BP 153/73; PULSE 76; RESP 14; TEMP 98.9; O2SAT 98
[2023-12-09 20:05] VITALS: RESP 14; O2SAT 98
[2023-12-09 20:15] VITALS: BP_SYST 150; BP_SYST 153; BP_DIAS 70; BP_DIAS 73; PULSE 76
[2023-12-10 06:00] VITALS: BP 150/72; PULSE 70; RESP 16; TEMP 98.6; O2SAT 98
[2023-12-10 08:45] VITALS: RESP 14; O2SAT 98
[2023-12-10 10:00] VITALS: BP 138/64; PULSE 87; RESP 16; TEMP 99.4; O2SAT 97
== END 2023-12-10 11:10 | DRG 492 ==
LOC: ER 18:41 → ED HOLD 12-04 01:49 → ORTHO 4S 12-04 03:54
PROVIDERS: ADMIT Surgery; ATTEND Internal Medicine
PROC: 0SSFXZZ Reposition Right Ankle Joint, External Approach (ICD-10-PCS; 2023-12-03)
PROC: 0QSG04Z Reposition Right Tibia with Internal Fixation Device, Open Approach (ICD-10-PCS; 2023-12-06)
PROC: 0QSJ04Z Reposition Right Fibula with Internal Fixation Device, Open Approach (ICD-10-PCS; principal; 2023-12-06 16:01)
DX: S82.51XA Displaced fracture of medial malleolus of right tibia, initial encounter for closed fracture (principal); N17.0 Acute kidney failure with tubular necrosis; B15.9 Hepatitis A without hepatic coma; S82.61XA Displaced fracture of lateral malleolus of right fibula, initial encounter for closed fracture; E78.5 Hyperlipidemia, unspecified; F41.9 Anxiety disorder, unspecified; I10 Essential (primary) hypertension; G62.9 Polyneuropathy, unspecified; S82.851A Displaced trimalleolar fracture of right lower leg, initial encounter for closed fracture; W18.39XA Other fall on same level, initial encounter; Y93.89 Activity, other specified; Y92.89 Other specified places as the place of occurrence of the external cause; Y99.8 Other external cause status; Z86.73 Personal history of transient ischemic attack (TIA), and cerebral infarction without residual deficits; Z90.710 Acquired absence of both cervix and uterus
CPT/HCPCS: 36415; 70450; 71045; 73600; 73610; 73700; 80048; 80053; 80061; 81003; 82948; 83036; 83735; 84100; 85025; 85610; 85730; 87081; 93005; 93306; 96374; 97116; 97161; 97530; 99285; A4314; A4338; A4615; A4618; A4620; A5200; A6223; A6253; A6258; A6446; A6449; A7000; C1713; C1758; C1776; G0378; J0690; J0735; J1100; J1644; J2270; J2405; J2704; J2795; J3010; J3490; J7030; J7120